=== PATIENT | male | born 1965 | race American Indian/Alaskan Native ===

== ENCOUNTER 2019-02-17 15:26 | Inpatient (IN) | payer BC, OTHER ==
[~2019-02-17] VITALS: Ht 182.9 cm; Wt 93.2 kg
[~2019-02-17 15:26] MED LIST: ASPI81TA52 PO; CLOP75TA35 PO; HYDR-4383 PO; LOVA20TA2 PO
[2019-02-17 16:50] LABS: ALANINE AMINOTRANSFERASE 31 U/L (12-78); ALBUMIN 4.4 G/DL (3.4-5.0); ALBUMIN/GLOBULIN RATIO 1.5 (1.1-1.5); ALKALINE PHOSPHATASE 56 IU/L (46-116); ANION GAP 11 (8-16); ASPARTATE AMINO TRANSFERASE 19 U/L (10-37); BILIRUBIN,TOTAL 0.5 MG/DL (0.1-1.0); BLOOD UREA NITROGEN 15 MG/DL (7-18); BUN/CREATININE RATIO 11.6 (5.4-32.0); CALCIUM 8.7 MG/DL (8.5-10.1); CHLORIDE 90 MMOL/L (99-107); CREATININE 1.29 MG/DL (0.60-1.10); GLUCOSE 116 MG/DL (70-104); POTASSIUM 4.5 MMOL/L (3.5-5.1); SODIUM 124 MMOL/L (135-145); TOTAL CARBON DIOXIDE 23.5 MMOL/L (24-32); TOTAL PROTEIN 7.3 G/DL (6.4-8.2); eGFR 58 ML/MIN
[2019-02-17] MEDS ORDERED: iohexol 350MG/ML 100ml bottle IV ONE (16:54)
[2019-02-17 17:43] LABS: BASOPHILS # (AUTO) 0.1 X10'3 (0-0.2); BASOPHILS % (AUTO) 0.5 % (0-1); EOSINOPHILS # (AUTO) 0.2 X10'3 (0-0.9); EOSINOPHILS % (AUTO) 2.2 % (0-6); HEMATOCRIT 41.5 % (42.0-52.0); HEMOGLOBIN 14.5 g/dl (14.0-17.9); LYMPHOCYTES # (AUTO) 1.9 X10'3 (1.1-4.8); LYMPHOCYTES % (AUTO) 18.6 % (21-51); MEAN CORPUSCULAR HEMOGLOBIN 35.3 PG (27.0-31.0); MEAN CORPUSCULAR HGB CONC 34.9 g/dL (33.0-36.5); MEAN CORPUSCULAR VOLUME 101.1 FL (78-98); MEAN PLATELET VOLUME 6.8 FL (7.4-10.4); MONOCYTES # (AUTO) 0.5 X10'3 (0-0.9); MONOCYTES % (AUTO) 5.1 % (2-12); NEUTROPHILS # (AUTO) 7.6 X10'3 (1.8-7.7); NEUTROPHILS % (AUTO) 73.6 % (42-75); PLATELET COUNT 286 X10'3 (140-440); RED BLOOD COUNT 4.11 X10'6 (4.70-6.10); RED CELL DISTRIBUTION WIDTH 14.3 % (11.5-14.5); WHITE BLOOD COUNT 10.4 X10'3 (4.5-11.0)
[2019-02-17 18:27] LABS: URINE AMPHETAMINE SCREEN NEGATIVE (Neg); URINE BARBITUATE SCREEN NEGATIVE (Neg); URINE BENZODIAZEPINES SCREEN NEGATIVE (Neg); URINE CANNABINOID SCREEN POSITIVE (Neg); URINE COCAINE SCREEN NEGATIVE (Neg); URINE METHADONE SCREEN NEGATIVE (Neg); URINE OPIATE SCREEN POSITIVE (Neg); URINE PHENCYCLIDINE SCREEN NEGATIVE (Neg)
[2019-02-17] MEDS ORDERED: HYDR-4353 PO (18:54)
[2019-02-17] MEDS ORDERED: TEST200V10 INJ (18:56)
--- NOTE | 2019-02-17 19:01 | NUR ---
pt states that he is taking [place] 10 for chronic back pain and that he will often take more than prescribed by his MD to control his pain. He states that he took a [place] just before his sycopal episode.
[2019-02-17] MEDS ORDERED: FLO0.4C PO (19:08)
[2019-02-17] MEDS ORDERED: normal saline 500ml IV soln 500 ML IV ONE (20:30)
[2019-02-17] MEDS ORDERED: acetaminophen 325mg tablet PO PRN (20:35)
[2019-02-17] MEDS ORDERED: HYDROcodone/acetaminophen 5mg/325mg tablet PO PRN (20:35)
[2019-02-17] MEDS ORDERED: ondansetron/PF 4mg/2ml inj IV PRN (20:35)
[2019-02-17] MEDS ORDERED: magnesium hydroxide 30ml (MOM) UD suspension PO PRN (20:35)
[2019-02-17] MEDS ORDERED: mag hydrox/Alum hydrox/simeth 30ml oral suspension PO PRN (20:35)
[2019-02-17] MEDS ORDERED: hydrocortisone sod succ/PF 100mg/2ml inj. IV ONE (20:40)
[2019-02-17] MEDS ORDERED: HYDROcodone/acetaminophen 10/325mg tab PO PRN (20:45)
[2019-02-17] MEDS: normal saline 1000ml 1,000 ML IV SCH (21:15)
[2019-02-17 22:20] VITALS: BP 138/76
[2019-02-17] MEDS: HYDROcodone/acetaminophen 10/325mg tab PO PRN (23:11)
[2019-02-18] MEDS: HYDROcodone/acetaminophen 10/325mg tab PO PRN ×5 (04:43→21:38)
[2019-02-18 06:00] VITALS: BP 115/72
--- NOTE | 2019-02-18 06:15 | NUR ---
Patient in room ORTHO 4009. I have received report from and had the opportunity to ask questions and assume patient care JEREMY Gallardo.
--- NOTE | 2019-02-18 06:27 | NUR ---
Problems reprioritized. Patient report given, questions answered & plan of care reviewed with JEREMY Miles.
[2019-02-18] MEDS: normal saline 1000ml 1,000 ML IV SCH ×2 (06:31→17:33)
[2019-02-18] MEDS: heparin, porcine 5000 units/ml vial SQ SCH ×2 (08:00→21:38)
[2019-02-18] MEDS: clopidogrel 75mg tablet PO SCH (08:00)
[2019-02-18 08:09] LABS: BASOPHILS % (AUTO) 0.3 % (0-1); EOSINOPHILS % (AUTO) 0 % (0-6); HEMATOCRIT 46.5 % (42.0-52.0); HEMOGLOBIN 16.3 g/dl (14.0-17.9); LYMPHOCYTES # (AUTO) 0.9 X10'3 (1.1-4.8); LYMPHOCYTES % (AUTO) 15.6 % (21-51); MEAN CORPUSCULAR HEMOGLOBIN 34.9 PG (27.0-31.0); MEAN CORPUSCULAR VOLUME 99.9 FL (78-98); MEAN PLATELET VOLUME 6.6 FL (7.4-10.4); MONOCYTES # (AUTO) 0.1 X10'3 (0-0.9); MONOCYTES % (AUTO) 2.4 % (2-12); NEUTROPHILS # (AUTO) 4.8 X10'3 (1.8-7.7); NEUTROPHILS % (AUTO) 81.7 % (42-75); PLATELET COUNT 344 X10'3 (140-440); RED BLOOD COUNT 4.65 X10'6 (4.70-6.10); RED CELL DISTRIBUTION WIDTH 14.5 % (11.5-14.5); WHITE BLOOD COUNT 5.8 X10'3 (4.5-11.0)
[2019-02-18 08:30] LABS: ALANINE AMINOTRANSFERASE 34 U/L (12-78); ALBUMIN 4.6 G/DL (3.4-5.0); ALBUMIN/GLOBULIN RATIO 1.3 (1.1-1.5); ALKALINE PHOSPHATASE 60 IU/L (46-116); ANION GAP 8 (8-16); ASPARTATE AMINO TRANSFERASE 19 U/L (10-37); BILIRUBIN,TOTAL 0.5 MG/DL (0.1-1.0); BLOOD UREA NITROGEN 9 MG/DL (7-18); BUN/CREATININE RATIO 10.8 (5.4-32.0); CALCIUM 8.8 MG/DL (8.5-10.1); CHLORIDE 98 MMOL/L (99-107); CREATININE 0.83 MG/DL (0.60-1.10); GLUCOSE 108 MG/DL (70-104); POTASSIUM 4.7 MMOL/L (3.5-5.1); SODIUM 133 MMOL/L (135-145); TOTAL CARBON DIOXIDE 27.1 MMOL/L (24-32); TOTAL PROTEIN 8.1 G/DL (6.4-8.2); eGFR > 90 ML/MIN
[2019-02-18 10:00] VITALS: BP 124/75
--- NOTE | 2019-02-18 15:44 | NUR ---
pt family brought patient breakfast and lunch for meals. Pt ate 100%
[2019-02-18 19:00] VITALS: BP 117/80
[2019-02-18 22:00] VITALS: BP 116/83
[2019-02-19] MEDS: HYDROcodone/acetaminophen 10/325mg tab PO PRN ×3 (02:07→11:15)
[2019-02-19] MEDS: normal saline 1000ml 1,000 ML IV SCH (02:12)
[2019-02-19 06:00] VITALS: BP 149/98
[2019-02-19 06:39] LABS: BASOPHILS # (AUTO) 0.1 X10'3 (0-0.2); EOSINOPHILS # (AUTO) 0.2 X10'3 (0-0.9); MEAN PLATELET VOLUME 7.7 FL (7.4-10.4)
[2019-02-19 06:43] LABS: BASOPHILS % (AUTO) 0.6 % (0-1); EOSINOPHILS % (AUTO) 2.1 % (0-6); HEMATOCRIT 42.2 % (42.0-52.0); HEMOGLOBIN 14.5 g/dl (14.0-17.9); LYMPHOCYTES # (AUTO) 2.9 X10'3 (1.1-4.8); LYMPHOCYTES % (AUTO) 35.4 % (21-51); MEAN CORPUSCULAR HEMOGLOBIN 34.6 PG (27.0-31.0); MEAN CORPUSCULAR HGB CONC 34.2 g/dL (33.0-36.5); MEAN CORPUSCULAR VOLUME 101.1 FL (78-98); MONOCYTES # (AUTO) 0.4 X10'3 (0-0.9); MONOCYTES % (AUTO) 5.1 % (2-12); NEUTROPHILS # (AUTO) 4.7 X10'3 (1.8-7.7); NEUTROPHILS % (AUTO) 56.8 % (42-75); PLATELET COUNT 282 X10'3 (140-440); RED BLOOD COUNT 4.18 X10'6 (4.70-6.10); RED CELL DISTRIBUTION WIDTH 14.4 % (11.5-14.5); WHITE BLOOD COUNT 8.3 X10'3 (4.5-11.0)
[2019-02-19 07:12] LABS: ALANINE AMINOTRANSFERASE 34 U/L (12-78); ALBUMIN 3.6 G/DL (3.4-5.0); ALBUMIN/GLOBULIN RATIO 1.2 (1.1-1.5); ALKALINE PHOSPHATASE 41 IU/L (46-116); ANION GAP 7 (8-16); BILIRUBIN,TOTAL 0.5 MG/DL (0.1-1.0); BLOOD UREA NITROGEN 10 MG/DL (7-18); BUN/CREATININE RATIO 12.7 (5.4-32.0); CALCIUM 8.2 MG/DL (8.5-10.1); CHLORIDE 103 MMOL/L (99-107); CREATININE 0.79 MG/DL (0.60-1.10); GLUCOSE 84 MG/DL (70-104); SODIUM 137 MMOL/L (135-145); TOTAL CARBON DIOXIDE 26.7 MMOL/L (24-32); TOTAL PROTEIN 6.5 G/DL (6.4-8.2); eGFR > 90 ML/MIN
[2019-02-19 07:14] LABS: ASPARTATE AMINO TRANSFERASE 25 U/L (10-37)
[2019-02-19] MEDS: heparin, porcine 5000 units/ml vial SQ SCH (08:00)
[2019-02-19] MEDS: clopidogrel 75mg tablet PO SCH (08:00)
[2019-02-19 10:00] VITALS: BP 142/93
[2019-02-19] MEDS ORDERED: gadopentetate dimeglumine 7.5 MMOL/15 ML syringe ONE (10:29)
--- NOTE | 2019-02-19 14:15 | NUR ---
DISCHARGE: VSS, A & O x4, denies SOB, resp distress, N/V vertigo at DC. All necessary procedures, tests complete, results consulted w/MD. Pt verbally confirmed understanding of all follow up appts r/t admission reasons/hx. all DC documents signed and copies released to pt. pt escorted to lobby/SHEN ambulating, w/[facility] staff member. pt thanked [facility] staff for his care.
== END 2019-02-19 14:10 | disposition home or self-care (01) | DRG 315 ==
LOC: ER 15:27 → ORTHO 4S 22:14
PROVIDERS: ADMIT Internal Medicine; ATTEND Family Medicine
PROC: B3251ZZ Computerized Tomography (CT Scan) of Bilateral Common Carotid Arteries using Low Osmolar Contrast (ICD-10-PCS; 2019-02-17)
PROC: B32G1ZZ Computerized Tomography (CT Scan) of Bilateral Vertebral Arteries using Low Osmolar Contrast (ICD-10-PCS; 2019-02-17)
PROC: B3201ZZ Computerized Tomography (CT Scan) of Thoracic Aorta using Low Osmolar Contrast (ICD-10-PCS; 2019-02-17)
PROC: B3281ZZ Computerized Tomography (CT Scan) of Bilateral Internal Carotid Arteries using Low Osmolar Contrast (ICD-10-PCS; 2019-02-17)
PROC: 4A10X4Z Monitoring of Central Nervous Electrical Activity, External Approach (ICD-10-PCS; principal; 2019-02-18)
DX: I95.9 Hypotension, unspecified (principal); E87.1 Hypo-osmolality and hyponatremia; R55 Syncope and collapse; M50.30 Other cervical disc degeneration, unspecified cervical region; F17.200 Nicotine dependence, unspecified, uncomplicated; G89.29 Other chronic pain; Z88.1 Allergy status to other antibiotic agents; Z83.3 Family history of diabetes mellitus; Z79.899 Other long term (current) drug therapy; Z71.6 Tobacco abuse counseling
CPT/HCPCS: 36415; 70496; 70498; 70553; 71045; 72141; 80053; 80305; 82024; 84484; 85025; 87081; 93005; 93308; 95816; 96361; 96374; 99285; A9579; G0378; J1644; J1720; J7030; J7040; Q9967

== ENCOUNTER 2019-03-25 12:12 | Inpatient (IN) | payer BC ==
[~2019-03-25] VITALS: Ht 182.9 cm; Wt 89.7 kg
[~2019-03-25 12:12] MED LIST changes: -ASPI81TA52 PO; -CLOP75TA35 PO; +FLO0.4C PO; +HYDR-4353 PO; -HYDR-4383 PO; -LOVA20TA2 PO; +TEST200V10 INJ
[2019-03-25] MEDS ORDERED: morphine 4 MG/ML inj SYRINge IV ONE (12:40)
[2019-03-25] MEDS ORDERED: ondansetron/PF 4mg/2ml inj IV ONE (12:40)
[2019-03-25] MEDS ORDERED: normal saline 1000ML IV soln IVB ONE ×2 (12:40→14:15)
[2019-03-25] MEDS ORDERED: pantoprazole 40 MG vial IV ONE (12:40)
[2019-03-25 13:10] LABS: BASOPHILS # (AUTO) 0.1 X10'3 (0-0.2); BASOPHILS % (AUTO) 0.9 % (0-1); EOSINOPHILS # (AUTO) 0.2 X10'3 (0-0.9); HEMATOCRIT 39.4 % (42.0-52.0); HEMOGLOBIN 14.1 g/dl (14.0-17.9); LYMPHOCYTES # (AUTO) 1.8 X10'3 (1.1-4.8); LYMPHOCYTES % (AUTO) 29.2 % (21-51); MEAN CORPUSCULAR HEMOGLOBIN 35.6 PG (27.0-31.0); MEAN CORPUSCULAR HGB CONC 35.8 g/dL (33.0-36.5); MEAN CORPUSCULAR VOLUME 99.4 FL (78-98); MONOCYTES # (AUTO) 0.5 X10'3 (0-0.9); MONOCYTES % (AUTO) 7.3 % (2-12); NEUTROPHILS # (AUTO) 3.7 X10'3 (1.8-7.7); NEUTROPHILS % (AUTO) 59.6 % (42-75); PLATELET COUNT 251 X10'3 (140-440); RED BLOOD COUNT 3.96 X10'6 (4.70-6.10); WHITE BLOOD COUNT 6.3 X10'3 (4.5-11.0)
[2019-03-25 14:02] LABS: ALANINE AMINOTRANSFERASE 28 U/L (12-78); ALBUMIN/GLOBULIN RATIO 1.3 (1.1-1.5); ALKALINE PHOSPHATASE 61 IU/L (46-116); ANION GAP 11 (8-16); ASPARTATE AMINO TRANSFERASE 21 U/L (10-37); BILIRUBIN,TOTAL 1.2 MG/DL (0.1-1.0); BLOOD UREA NITROGEN 10 MG/DL (7-18); BUN/CREATININE RATIO 13.9 (5.4-32.0); CALCIUM 7.9 MG/DL (8.5-10.1); CHLORIDE 85 MMOL/L (99-107); CREATININE 0.72 MG/DL (0.60-1.10); GLUCOSE 81 MG/DL (70-104); POTASSIUM 4.1 MMOL/L (3.5-5.1); TOTAL CARBON DIOXIDE 21.3 MMOL/L (24-32); eGFR > 90 ML/MIN
[2019-03-25 14:11] LABS: SODIUM 117 MMOL/L (135-145)
--- NOTE | 2019-03-25 14:11 | NUR ---
CALLED LAB FOR LAB RESULTS SO PT CAN GO TO CT, CREATININE 0.72, BUN 10 GFR>90, ALSO CRITICAL SODIUM 117 DR HERNANDEZ INFORMED.
[2019-03-25] MEDS ORDERED: mag hydrox/Alum hydrox/simeth 30ml oral suspension PO PRN (14:35)
[2019-03-25] MEDS ORDERED: ondansetron/PF 4mg/2ml inj IV PRN (14:35)
[2019-03-25] MEDS ORDERED: acetaminophen 325mg tablet PO PRN (14:35)
[2019-03-25] MEDS: normal saline 1000ml 1,000 ML IV SCH (15:59)
--- NOTE | 2019-03-25 16:11 | NUR ---
PT C/O PAIN 12/27 BACK PAIN, PAGED DR SHELLEY TO ADVISE. WILL AWAIT ANY ORDERS
[2019-03-25] MEDS: HYDROcodone/acetaminophen 10/325mg tab PO PRN ×2 (16:40→23:46)
--- NOTE | 2019-03-25 17:00 | NUR ---
Received report from Ronen LUNA. All questions answered; patient will be admitted to room 3012B.
[2019-03-25 17:09] LABS: CLARITY,URINE CLEAR (Clear); COLOR,URINE YELLOW (Yellow); GLUCOSE, URINE NEGATIVE (Neg); KETONES,URINE 40 mg/dl (Neg); LEUKOCYTE ESTERASE ,URINE NEGATIVE (Neg); NITRITES, URINE NEGATIVE (Neg); OCCULT BLOOD,URINE TRACE-INTACT (Neg); PH,URINE 6.5 (4.8-8.0); PROTEIN,URINE NEGATIVE (Neg); UA COLLECTION TYPE URINAL; UROBILINOGEN,URINE 0.2 E.U/dL (0.2-1.0)
[2019-03-25 17:17] LABS: BACTERIA,URINE FEW /HPF (Neg); SQUAMOUS EPITHELIAL CELL,UR FEW /LPF (FEW); WBC,URINE 0-4 /HPF (0-4)
[2019-03-25 19:47] LABS: ALBUMIN 3.5 G/DL (3.4-5.0); ANION GAP 7 (8-16); BLOOD UREA NITROGEN 8 MG/DL (7-18); BUN/CREATININE RATIO 11.6 (5.4-32.0); CHLORIDE 90 MMOL/L (99-107); CREATININE 0.69 MG/DL (0.60-1.10); GLUCOSE 105 MG/DL (70-104); POTASSIUM 4.2 MMOL/L (3.5-5.1); TOTAL CARBON DIOXIDE 22.7 MMOL/L (24-32); eGFR > 90 ML/MIN
[2019-03-25 19:52] LABS: SODIUM 120 MMOL/L (135-145)
[2019-03-25 20:00] VITALS: BP 160/87
--- NOTE | 2019-03-25 20:00 | NUR ---
Juana gave me report at 1940. Patient arrived to unit via gurchristoph and RN transporting. Two family members at her bedside. Addendum: 03/26/19 at 0518 by Eleazar Mays RN his bedside
[2019-03-25] MEDS: heparin, porcine 5000 units/ml vial SQ SCH (20:16)
[2019-03-25] MEDS: magnesium hydroxide 30ml (MOM) UD suspension PO PRN (20:16)
[2019-03-25 22:00] VITALS: BP 116/55
[2019-03-26 02:00] VITALS: BP 121/81
[2019-03-26] MEDS: normal saline 1000ml 1,000 ML IV SCH ×2 (02:31→11:08)
--- NOTE | 2019-03-26 05:43 | NUR ---
Dr Schaefer ordered pt to be on fluid restriction. NS running at 100mL/hr are ok. Addendum: 03/26/19 at 0544 by Eleazar Mays RN Amended: Links added.
[2019-03-26] MEDS: HYDROcodone/acetaminophen 10/325mg tab PO PRN ×3 (05:59→19:11)
[2019-03-26 06:00] VITALS: BP 117/61
[2019-03-26 06:23] LABS: ALBUMIN 3.8 G/DL (3.4-5.0); ANION GAP 8 (8-16); BLOOD UREA NITROGEN 7 MG/DL (7-18); BUN/CREATININE RATIO 10.3 (5.4-32.0); CALCIUM 8.3 MG/DL (8.5-10.1); CHLORIDE 96 MMOL/L (99-107); CREATININE 0.68 MG/DL (0.60-1.10); GLUCOSE 70 MG/DL (70-104); POTASSIUM 4.4 MMOL/L (3.5-5.1); SODIUM 128 MMOL/L (135-145); eGFR > 90 ML/MIN
[2019-03-26 06:28] LABS: BASOPHILS % (AUTO) 0.9 % (0-1); EOSINOPHILS # (AUTO) 0.1 X10'3 (0-0.9); EOSINOPHILS % (AUTO) 3.3 % (0-6); HEMATOCRIT 41.3 % (42.0-52.0); HEMOGLOBIN 14.6 g/dl (14.0-17.9); LYMPHOCYTES # (AUTO) 1.4 X10'3 (1.1-4.8); LYMPHOCYTES % (AUTO) 34.9 % (21-51); MEAN CORPUSCULAR HEMOGLOBIN 35.5 PG (27.0-31.0); MEAN CORPUSCULAR HGB CONC 35.3 g/dL (33.0-36.5); MEAN CORPUSCULAR VOLUME 100.6 FL (78-98); MEAN PLATELET VOLUME 7.2 FL (7.4-10.4); MONOCYTES # (AUTO) 0.3 X10'3 (0-0.9); MONOCYTES % (AUTO) 8.4 % (2-12); NEUTROPHILS # (AUTO) 2.1 X10'3 (1.8-7.7); NEUTROPHILS % (AUTO) 52.5 % (42-75); PLATELET COUNT 287 X10'3 (140-440); RED BLOOD COUNT 4.11 X10'6 (4.70-6.10); WHITE BLOOD COUNT 4.1 X10'3 (4.5-11.0)
--- NOTE | 2019-03-26 06:36 | NUR ---
Problems reprioritized. Patient report given, questions answered & plan of care reviewed with Eddie Yuen RN.
--- NOTE | 2019-03-26 06:41 | NUR ---
Patient in room PCU 3012B. I have received report from Eleazar LUNA and had the opportunity to ask questions and assume patient care.
[2019-03-26] MEDS: heparin, porcine 5000 units/ml vial SQ SCH ×2 (08:13→19:10)
[2019-03-26] MEDS ORDERED: LISI-600 PO (08:24)
--- NOTE | 2019-03-26 10:01 | NUR ---
Pt is requesting referral for hand i thermal cutter. Per Dr Jeffers, we are unable to make referral and patient MUST go through his PCP.
[2019-03-26 11:00] VITALS: BP 119/65
--- NOTE | 2019-03-26 14:27 | NUR ---
Paged Dr Jeffers regarding patients most recent Na result PAGER ID: [phone] MESSAGE: Alap evangelista [phone]. Maame Campo lab results came back with Na of 127.
[2019-03-26 15:00] VITALS: BP 123/71
[2019-03-26 18:00] VITALS: BP 119/71
--- NOTE | 2019-03-26 18:30 | NUR ---
Patient in room PCU 3028. I have received report from JEREMY AVENDAÑO and had the opportunity to ask questions and assume patient care.
--- NOTE | 2019-03-26 18:42 | NUR ---
Problems reprioritized. Patient report given, questions answered & plan of care reviewed with Rosy LUNA. Patient stable at change of shift
[2019-03-26 22:00] VITALS: BP 140/71
[2019-03-27] MEDS: HYDROcodone/acetaminophen 10/325mg tab PO PRN ×2 (01:13→08:09)
[2019-03-27] MEDS: normal saline 1000ml 1,000 ML IV SCH (01:26)
[2019-03-27 03:00] VITALS: BP 120/80
[2019-03-27 04:55] LABS: BASOPHILS % (AUTO) 0.9 % (0-1); EOSINOPHILS # (AUTO) 0.2 X10'3 (0-0.9); EOSINOPHILS % (AUTO) 3.7 % (0-6); LYMPHOCYTES # (AUTO) 1.8 X10'3 (1.1-4.8); LYMPHOCYTES % (AUTO) 36.9 % (21-51); MEAN CORPUSCULAR HEMOGLOBIN 35.7 PG (27.0-31.0); MEAN CORPUSCULAR HGB CONC 35.7 g/dL (33.0-36.5); MEAN PLATELET VOLUME 7.5 FL (7.4-10.4); MONOCYTES # (AUTO) 0.4 X10'3 (0-0.9); MONOCYTES % (AUTO) 7.7 % (2-12); NEUTROPHILS # (AUTO) 2.5 X10'3 (1.8-7.7); NEUTROPHILS % (AUTO) 50.8 % (42-75); PLATELET COUNT 275 X10'3 (140-440); RED CELL DISTRIBUTION WIDTH 14.2 % (11.5-14.5); WHITE BLOOD COUNT 4.9 X10'3 (4.5-11.0)
[2019-03-27 05:04] LABS: ANION GAP 9 (8-16); BLOOD UREA NITROGEN 11 MG/DL (7-18); BUN/CREATININE RATIO 14.1 (5.4-32.0); CALCIUM 8.5 MG/DL (8.5-10.1); CHLORIDE 99 MMOL/L (99-107); CREATININE 0.78 MG/DL (0.60-1.10); GLUCOSE 86 MG/DL (70-104); POTASSIUM 4.4 MMOL/L (3.5-5.1); SODIUM 133 MMOL/L (135-145); TOTAL CARBON DIOXIDE 24.9 MMOL/L (24-32); eGFR > 90 ML/MIN
--- NOTE | 2019-03-27 06:23 | NUR ---
Problems reprioritized. Patient report given, questions answered & plan of care reviewed with JEREMY AVENDAÑO.
--- NOTE | 2019-03-27 06:54 | NUR ---
Patient in room PCU 3028B. I have received report from Rosy LUNA and had the opportunity to ask questions and assume patient care.
[2019-03-27] MEDS: magnesium hydroxide 30ml (MOM) UD suspension PO PRN (08:09)
[2019-03-27] MEDS: heparin, porcine 5000 units/ml vial SQ SCH (08:10)
--- NOTE | 2019-03-27 11:00 | NUR ---
Per MD order patient stable for discharge. No new medications to call to pharmacy. Tele monitor and IV removed with cannula intact. Patient given discharge packet, and discharged with all belongings. Patient discharged to home with .
--- NOTE | 2019-03-27 11:08 | NUR ---
[employer] Hire documentation: I have reviewed and agree with all interventions, assessments performed and documented by Vania LUNA.
== END 2019-03-27 11:14 | disposition home or self-care (01) | DRG 392 ==
LOC: ER 12:13 → ED HOLD 14:38 → PCU 3S 19:54
PROVIDERS: ADMIT Family Medicine; ATTEND Family Medicine
DX: K59.00 Constipation, unspecified (principal); E87.1 Hypo-osmolality and hyponatremia; N40.0 Benign prostatic hyperplasia without lower urinary tract symptoms; I10 Essential (primary) hypertension; G89.29 Other chronic pain; M54.9 Dorsalgia, unspecified; F17.210 Nicotine dependence, cigarettes, uncomplicated; Z83.3 Family history of diabetes mellitus; Z79.899 Other long term (current) drug therapy
CPT/HCPCS: 36415; 74018; 80048; 80053; 81001; 83690; 84295; 85025; 87081; 94760; 96361; 96374; 96375; 99285; C9113; G0378; J1644; J2270; J2405; J7030

== ENCOUNTER 2025-02-20 05:27 | Inpatient (IN) | payer OTHER ==
[2025-02-12 12:01] LABS: MEAN PLATELET VOLUME 8.0 FL (7.4-10.4); PRE OP HEMATOCRIT 45.7 % (42.0-52.0); PRE OP HEMOGLOBIN 15.6 g/dL (14.0-17.9); PRE OP PLATELET COUNT 314 X10'3 (140-440); PRE OP WHITE BLOOD COUNT 10.0 10'3 (4.8-10.8); RED CELL DISTRIBUTION WIDTH 13.7 % (11.5-14.5)
--- NOTE | 2025-02-12 12:06 | ELECTROCARDIOGRAPH REPORT ---
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 RANDALL De Anda Measurements Intervals [place] Rate: 66 P: 71 AK: 164 QRS: 42 QRSD: 111 T: 1 QT: 374 QTc: 392 Interpretive Statements Sinus rhythm Incomplete left bundle branch block Electronically Signed On 02-12-2025 17:19:[address] RANDALL De Anda Please click the below link to view image of tracing.
[2025-02-12 12:30] LABS: CREATININE 0.85 MG/DL (0.60-1.10); PRE OP ALT 30 U/L (30-65); PRE OP ANION GAP 6 (8-16); PRE OP AST 17 U/L (10-37); PRE OP BILIRUB, TOTAL 0.3 MG/DL (0.0-1.0); PRE OP GLUCOSE 92 MG/DL (70-104); PRE OP POTASSIUM 4.3 MMOL/L (3.4-5.1); PRE OP SODIUM 137 MMOL/L (135-145); TOTAL CARBON DIOXIDE 29.0 MMOL/L (24-32); eGFR > 90 ML/MIN
[~2025-02-20] VITALS: Ht 182.9 cm; Wt 106.7 kg
[2025-02-20] VITALS (22 sets, daily range): BP systolic 110–153; BP diastolic 60–102; PULSE 63–83; RESP 9–22; TEMP 98.2–98.5; O2SAT 89–100
[~2025-02-20 05:27] MED LIST changes: +CHOL200026 PO; -FLO0.4C PO; +HYDR-4318 PO; +HYDR20TA24 PO; +LEVO100T78 PO; +LISI5TAB22 PO; -TEST200V10 INJ
[2025-02-20] MEDS: hydrocortisone sod succ/PF 100mg/2ml inj. IV ONE (06:18)
[2025-02-20] MEDS: tranexamic acid 1gm/0.7% sal. 100 ML IV ONE ×2 (06:18→15:49)
[2025-02-20] MEDS: ceFAZolin 2gm/dext,iso 50mL 50 ML IV ONE (06:18)
[2025-02-20] MEDS: ringers solution, lacted 1,000 ML IV SCH ×2 (06:18→08:40)
[2025-02-20] MEDS: VANCOMYCIN/H2O 1.5g/300mL PB 300 ML IV ONE (06:19)
[2025-02-20] MEDS ORDERED: vancomycin 1,000mg inj ONE (06:50)
[2025-02-20] MEDS ORDERED: MIDAZolam 1mg/ml 10ml vial ONE (07:21)
[2025-02-20] MEDS ORDERED: fentaNYL/PF 50MCG/1 ML 2ML syringe ONE (07:21)
[2025-02-20] MEDS ORDERED: propofol inj 20 ML IV ONE ×2 (07:24)
[2025-02-20] MEDS ORDERED: fentaNYL/PF 50MCG/1 ML 2ML syringe IV PRN ×2 (08:40)
[2025-02-20] MEDS ORDERED: ondansetron/PF 4mg/2ml inj IV PRN ×2 (08:40→11:45)
[2025-02-20] MEDS ORDERED: hydrALAZINE 20mg/ml inj. IV PRN (08:40)
[2025-02-20] MEDS ORDERED: labetalol 20mg/4ml (5mg/ml) syringe IV PRN (08:40)
[2025-02-20] MEDS ORDERED: morphine 4 MG/ML inj SYRINge IV PRN (08:40)
--- NOTE | 2025-02-20 08:54 | ANESTHESIA RECORDS ---
Nerve Block Providers to CC CC: ZULEYKA STEELE MD ~ Diagnosis: Nerve Block requested by: ZULEYKA STEELE MD Neuraxial/Peripheral Nerve Block requested for Post-operative analgesia by Physician above DIAGNOSIS: Post-operative pain. (Body Area) Shoulder: [ ] Arm: [ ] Hand: [ ] Hip: [ ] Knee: [ Right ] Ankle: [ ] Foot: [ ] Leg: [ ] Abdomen: [ ] Other: [ ] Post-operative pain expected to be/is inadequately managed by oral or IV medicines. Regional anesthetic expected to facilitate rehabilitation and/or discharge from facility. Other:[ _] Procedure Performed: Femoral / Saphenous: Right Other: Right Ipack block Time out Done?: Yes Time of Time out: 08:38 Procedure Details: PROCEDURE DETAILS: Risks, benefits and alternatives explained Informed consent obtained, and patient wishes to proceed Conscious sedation with indicated monitors Patient positioned, pertinent anatomy defined, sterile technique used Needle used: [ ] 3 1/8 inch Stimuplex Ultra 22ga [ ] 4 inch Stimuplex Ultra 20ga [X ] 6 inch Stimuplex Ultra 20ga [ ] 6 inch, Quikbloc over the needle catheter set 20ga [ ] 4 inch Quikbloc over the needle catheter set 20ga [ ]Other: [ ] Loss of twitch @ [ ]mA [X ] Single Injection [ ] Catheter Ultrasound Guidance Used: [X ] Yes [ ] No Attempts:[_1,1 ] Medicines injected: [ ]Clonidine Amt:[ ] [ ]Dexamethasone Amt:[ ] [ ]Ropivacaine Amt:[ ] [ X ]Bupivacaine Amt:[___0.25% 30 c.c ] [ ]Lidocaine Amt:[ ] [ X ]Exparel 1.33%:[____20 c.c ] [ ]Epinephrine Amt[ ] [ ]Other: [ ] Intermittent aspiration during local anesthetic administration No symptoms of intraneural or intravenous injection Patient tolerated procedure well Comments Right Adductor canal Block: Right mid medial thigh is examined with Ultrasound and Adductor canal and vessels in the canal a are identified. Needle is in the canal.After negative aspirations,30 c.c locla mix of Exparel,bupevacaine injected. Spread is noted. Ultrasound image is captured and documented. Right Ipack block: Right posterior thigh is examined at right medial femoral condyle level. Right popliteral artery, right posterior knee capsule are idnetified. Needle is placed in between and 20 c.c local mix is infiltrated. Image is captured and documented. MATTHEW ALFARO MD Feb 20, 2025 08:54
[2025-02-20] MEDS ORDERED: ketorolac trometh 30MG/ML vial 30 MG/ML VIAL ONE (09:03)
[2025-02-20] MEDS ORDERED: HYDROmorphone inj. 0.5 MG/0.5 ML DISP.SYRIN IV PRN (11:45)
[2025-02-20] MEDS ORDERED: bisacodyl 10mg suppository rectal RC PRN (11:45)
[2025-02-20] MEDS ORDERED: oxyCODONE IR 5mg (immed. release) tablet PO PRN (11:45)
[2025-02-20] MEDS ORDERED: magnesium hydroxide 30ml (MOM) UD suspension PO PRN (11:45)
[2025-02-20] MEDS ORDERED: PCA WASTE DOCUMENTATION 1 MG ML MC SCH (11:45)
--- NOTE | 2025-02-20 12:05 | OPERATIVE REPORT ---
Operative Report Providers to ~ Date of Procedure: Feb 20, 2025 Pre-Operative Diagnosis: Severe degenerative joint disease tricompartmental right Post-Operative Diagnosis SAME as PRE-Op Procedure Performed Right total knee arthroplasty Press-Fit Surgeon: Zuleyka Brooke MD Stock Saw Operator Kedar Blankenship MD Anesthesiologist: Bronson Siddiqui Type of Anesthesia: Spinal Findings: Severe tricompartmental degenerative joint disease Complications None Prosthetics\Implants used: To pew 41 mm patella cemented. Number size seven tibial base plate Press-Fit. Size seven femoral cruciate retaining cementless right distal femoral component. Size seven /6 mm thick medial congruent polyethylene insert Estimated Blood Loss: One hundred fifty mL Specimen Removed: Degenerative bone meniscal and cruciate tissue Description of Procedure: Patient was taken to the operating room after I had obtained informed consent signed his right knee. Answered all of his questions discussing the indications risks benefits limitations and potential complications. Patient was taken to operating room after obtaining informed consents were signed. Intravenous antibiotics were given and administered per protocol. Once in the operating room patient was given a spinal anesthetic and placed in the OR table in the supine position. His left leg was placed sequential compression sleeve. The right leg was placed in a upper thigh well-padded tourniquet. Surgical time-out was taken after the leg was prepped and draped in usual sterile orthopaedic fashion. The skin had been protected with Ioban skin dressings. Esmarch was used for exsanguination and tourniquet was insufflated anterior incision measuring 10 in was made medial parapatellar approach was accomplished allowing exposure of the patella was found and revealed a surrounding osteophytes and moderate synovitis. Osteotomy of the patella now was performed using a freehand technique this allowed excision of the osteophytes and was measured to a size 41 and was drilled and protected with a skin plate subluxed laterally. Distal femoral was exposed. Meniscectomies were performed in an inferior fat pad/Hoffa's fat pad was excised hemostasis was achieved with electrocautery throughout the case. Medullary canal was established in the distal femur for a HIDA purposes alignment jerson was inserted distal femoral cut of 10 mm was accomplished using the alignment jerson. Proximal tibia was exposed with the knee placed in the extreme flexion releasing cruciate ligaments and excising admitted meniscal tissue medullary canal was established with a drill and the intramedullary jreson for guidance and alignment purposes was placed proximal femur was cut with 3 mm of cut of the medial side and 10 mm side and a 5 degree posterior slope. Flexion-extension gaps were found to be equal. Four in one cutting block was then placed in the distal femur and anterior and posterior chamfer cuts were made without difficulty. Bone quality was excellent. Trial components were placed in the knee and we are able to achieved with a 6 mm insert full extension and full flexion with stable throughout this range of motion. Tibia was killed in the definitive Press-Fit component was impacted into place with a excellent fixation. Femoral component was now impacted into place as well in the definitive polyethylene insert was placed in the knee. He was taken through a range of motion again found to be quite stable she had full range of motion. Pa tella was cemented into place allowed to cure for 15 minutes. Tourniquet was released and hemostasis was checked and found to be excellent with supported with thrombin spray/Vistaseal 1 g of vancomycin powder was placed in the depths of the knee as well. Closure was accomplished with interrupted sutures of 1. Ethibond and Stratafix 1. Prolene barbed suture. Subcuticular closure was accomplished with 2-0 barbed suture using horizontal mattress technique. The skin was sealed with Dermabond sterile saline closure with the knee flexed position allowing this to harden for 90 seconds for placing sterile dressings and an island dressing over the top. The dressings were removed allowing the anesthesiologist to perform a I pack block and a adductor canal block patient was then transferred to the recovery room in stable condition leg was checked for good distal pulses and capillary refill . There were no apparent perioperative complications Counts repoted as correct: Yes ZULEYKA BROOKE MD Feb 20, 2025 12:05
--- NOTE | 2025-02-20 12:57 | RADIOLOGY REPORT ---
EXAM: DI KNEE LIMITED (AP/LAT) CLINICAL INDICATION: Postop RT. KNEE TECHNIQUE: DI KNEE LIMITED (AP/LAT) Comparison: None FINDINGS/IMPRESSION: Right total knee arthroplasty. Expected postsurgical changes
[2025-02-20] MEDS: potassium cl 20mEq in 1/2 NS 1,000 ML IV SCH (13:47)
[2025-02-20] MEDS: HYDROcodone/acetaminophen 10/325mg tab PO PRN (15:50)
[2025-02-20] MEDS: ceFAZolin/D5W- 1GM premix 50 ML IV SCH (16:45)
[2025-02-20] MEDS: vancomycin/NS 1 GM ADD-VANTAGE 250 ML IV SCH (20:15)
--- NOTE | 2025-02-20 20:27 | CONSULTATION REPORT - RESIDENT ---
Consult Providers to CC Resident Creating Document: FAUSTO DIEGO RES History of Present Illness Reason for Admit\Complaint: PAIN MANAGEMENT History of Present Illness 60 year old male patient with past medical history of sleep apnea , HTN, and hypothyroidism has come to the hospital for right total knee arthroplasty which was performed today by Dr Brooke. Patient is currently complaning of pain in his right leg, rates it 7/10 in intensity. Patient was on a foleys catheter which was removed, he is able to pass urine without any difficulty. He has no other complaints of chest pain, headache, abdominal pain, fever, nausea , vomiting, sob. Allergies: Coded Allergies: No Known Allergies (Unverified , 02/19/25) Home Medications Home Medications Active Reported Levoxyl (Levothyroxine Sodium) 100 Mcg Tablet 1 Tab PO DAILY 30 Days Lisinopril 5 Mg Tablet 1 Tab PO DAILY 30 Days Vitamin D3 (Cholecalciferol (Vitamin D3)) 50 Mcg (2000 Unit) Tablet 1 Tab PO DAILY 30 Days Hydrocortisone 10 Mg Tablet 10 Mg PO QPM Hydrocortisone 20 Mg Tablet 20 Mg PO QAM 30 Days [place] 10-325 Tablet (Acetaminophen/Hydrocodone Bitart) 1 Each Tablet 1 Tab PO BID PRN Past Medical History Past Medical History sleep apnea hypertension hypothyroidism Past Surgical History Surgical History Comment No significant surgical history. Family History Family History: (DM Type 2) Diabetes mellitus type 2 GRANDFATHER OR GRANDMOTHER, Onset:Unknown Past Social History Social History Comment Patient has smoked for about 20 years, 5 cigarettes per day. hasn't had alcohol for 20 yrs now, before that annabel a socail drinker. no illicit drug use He lives at home with his . He is independent with all his activities of daily living. ROS ROS Constitutional: No fever, chills present, no dizziness Eyes: No pain, erythema, discharge, blurring of vision ENT: No sore throat, epistaxis, tinnitus Cardiovascular:No chest pain, palpitations, syncope, lower extremity edema, paroxysmal nocturnal dyspnea Respiratory: No hemoptysis. No shortness of breadth Gastrointestinal: no nausea , vomiting. Present no,hematemesis, melena Musculoskeletal:complaints of pain in his right leg.No chronmic edema. Integumentary: No change in skin, hair, No swelling, no abrasions Neurologic: No weakness,No headache, neck pain, Psychiatric: No delusions, depression, loss of interest in normal activity or change in sleep pattern, hallucinations, suicidal ideations Endocrine: no polydipsia, polyuria, change in appetite, heat or cold intolerance, sweating, dry skin Hematological: no bleeding, petechiae, bruising Allergies: No asthma or urticaria Gastrointestinal: Reports: no abdominal pain, rectal bleeding Exam Vitals: Vital Signs Date Time Temp Pulse Resp B/P (MAP) Pulse Ox O2 Delivery O2 Flow Rate FiO2 02/20/25 17:00 78 133/94 (107) 96 02/20/25 16:00 22 Nasal Cannula* 3 32 02/20/25 13:15 98.3 General: Awake , alert and oriented to time,place, person, not in acute distress, seemed a bit irritated. HEENT: Atraumatic, normocephalic, PEERLA, anicteric sclera ; pink conjunctiva, dry mucosa membrane Neck: Trachea midline. Supple, normal range of motion, no JVD Cardiac: S1, S2 heard, Regular rate and rhythm, without murmurs, rubs, or gallops. Chest and Respiratory: Equal breath sounds bilaterally, no tachypnea, & no rhonchi , Chest wall is symmetric and without deformity. Abdomen: Abdomen symmetric, no abdominal tenderness no guarding or rebound tenderness, no hepatosplenomegaly Extremities: warm, No cyanosis, clubbing or edema, peripheral pulses well felt Neurological: Speech is clear, alert, and oriented x 4. No motor or sensory deficit, deep tendon reflexes normal, cerebellar intact. Cranial nerves II-XII intact. Skin: Warm and dry Psychiatry: Affect and slightly irritated Additional Plan Zgsnwryna-68-hnnl-old male with past medical history of hypertens ion,hypothyroidism ,sleep apnea , was admitted in the hospital for right total knee arthroplasty by Dr. Brooke which was performed today. Hospital team was consulted for pain management. Right total knee arthroplasty Right total knee arthroplasty done by Dr Brooke today Patient receiving fluids Ringer's lactate 20mls/hr Patient on Vancomycin 1gm q12h IV and cefazolin 1gm q8h IV. Patient able to pass gas. Patient on a knee sleeve right now Patient currentyl receiving dilaudid, acetaminophen and narco for his pain. Will continue to monitor him. Hypertension- Systolic blood pressures in 130's, 140's now. Patient on home medication lisinopril 5mg. Hypothyroidism- Patient on levothyroxine 100mcg. Follow up with outpatient Sleep apnea- CPAP ordered. Disposition- will continue to monitor the patient for pain control. Fausto Diego PGY-1 Date of Service: Feb 20, 2025 Billing Provider: CARIN RIOS MD, PREETHI, RES Feb 20, 2025 20:27
[2025-02-21] MEDS: oxyCODONE IR 5mg (immed. release) tablet PO PRN (00:37)
[2025-02-21 03:41] LABS: LEUKOCYTE ESTERASE ,URINE NEGATIVE (Neg); NITRITES, URINE NEGATIVE (Neg); OCCULT BLOOD,URINE SMALL (Neg)
[2025-02-21 03:42] LABS: UA COLLECTION TYPE CLN CATCH MIDSTREAM
[2025-02-21 03:52] LABS: SQUAMOUS EPITHELIAL CELL,UR NONE SEEN /LPF (FEW)
[2025-02-21 06:00] VITALS: BP 125/64; PULSE 83; RESP 14; TEMP 98.3; O2SAT 98
[2025-02-21] MEDS: cholecalciferol (vitamin D3) 1,000 unit (25mcg) tablet PO SCH (08:24)
[2025-02-21] MEDS: levoTHYROXINE 100mcg tablet PO SCH (08:25)
[2025-02-21] MEDS: enoxaparin 40mg/0.4ml syringe SQ SCH (08:31)
[2025-02-21 09:32] LABS: MEAN PLATELET VOLUME 8.5 FL (7.4-10.4); RED CELL DISTRIBUTION WIDTH 14.2 % (11.5-14.5)
[2025-02-21 09:50] LABS: CREATININE 1.03 MG/DL (0.60-1.10); TOTAL CARBON DIOXIDE 28.4 MMOL/L (24-32); eCRCL 85 ML/MIN; eGFR 74 ML/MIN
[2025-02-21 10:00] VITALS: BP 138/91; PULSE 85; RESP 16; TEMP 98.3; O2SAT 100
[2025-02-21] MEDS ORDERED: APIX2.5T PO (10:04)
--- NOTE | 2025-02-21 12:26 | DISCHARGE SUMMARY ---
Discharge Summary Providers to CC ~ Discharge Summary Admission Diagnosis: Right TKA Hospital Course DATE OF ADMISSION: 02/20/25 DATE OF DISCHARGE: 02/21/25 Discharge Diagnosis\\Comment: Right total knee arthroplasty Hypertension Hypothyroidism Sleep apnea Operations\\Procedures: Right total knee arthroplasty Press-Fit Consultants: None Complications: None Condition on DC: Stable New Medications: Apixaban (Eliquis) 2.5 Mg Tablet 1 TAB PO Q12H for 14 Days, #28 TAB 0 Refills Changed Medications: Lisinopril (Lisinopril) 5 Mg Tablet 2 TAB PO DAILY for 30 Days, #60 TAB 0 Refills (Changed from: 1 TAB; 30) Continued Medications: Cholecalciferol (Vitamin D3) (Vitamin D3) 50 Mcg (2000 Unit) Tablet 1 TAB PO DAILY for 30 Days, #30 TAB 0 Refills Hydrocodone Bit/Acetaminophen ([place] 10-325 Tablet) 1 Each Tablet 1 TAB PO BID PRN for pain Hydrocortisone (Hydrocortisone) 20 Mg Tablet 20 MG PO QAM for 30 Days, #30 TAB 0 Refills Hydrocortisone (Hydrocortisone) 10 Mg Tablet 10 MG PO QPM, TAB Levothyroxine Sodium (Levoxyl) 100 Mcg Tablet 1 TAB PO DAILY for 30 Days, #30 TAB 0 Refills Discharge Summary: History of Present Illness From H&P: "60 year old male patient with past medical history of sleep apnea , HTN, and hypothyroidism has come to the hospital for right total knee arthroplasty which was performed today by Dr. Brooke. Patient is currently complaining of pain in his right leg, rates it 7/10 in intensity. Patient had Foleys catheter which was removed, he is able to pass urine without any difficulty. He has no other complaints of chest pain, headache, abdominal pain, fever, nausea , vomiting, sob." Hospital Course Patient was continued on supportive care. Patient did not experience further complications throughout the entire hospital stay and remained clinically and hemodynamically stable. Patient was seen and examined on the day of discharge. On day of discharge, vss and labs unremarkable. All labs, diagnostic workups, di scharge plan discussed with patient in details during visit before discharge. All questions and concerns answered to the best of my professional knowledge. Patient is to be discharged with and to follow-up with PCP and Dr. Brooke within 2 weeks. 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
[2025-02-21] MEDS ORDERED: LISI5TAB22 PO (12:43)
== END 2025-02-21 12:55 | disposition home health service (06) | DRG 470 ==
LOC: PAS IN 05:27 → ORTHO 4S 13:26
PROVIDERS: ADMIT Orthopaedic Surgery; ATTEND Nurse Practitioner Family
PROC: 0JH80VZ Insertion of Infusion Pump into Abdomen Subcutaneous Tissue and Fascia, Open Approach (ICD-10-PCS; 2025-02-20)
PROC: 3E013BZ Introduction of Anesthetic Agent into Subcutaneous Tissue, Percutaneous Approach (ICD-10-PCS; 2025-02-20)
PROC: 0SRC0J9 Replacement of Right Knee Joint with Synthetic Substitute, Cemented, Open Approach (ICD-10-PCS; principal; 2025-02-20 07:39)
DX: M17.11 Unilateral primary osteoarthritis, right knee (principal); E03.9 Hypothyroidism, unspecified; I10 Essential (primary) hypertension; M65.961 Unspecified synovitis and tenosynovitis, right lower leg
CPT/HCPCS: Z7506; Z7508; 36415; 73560; 80053; 81001; 82948; 84443; 85025; 87081; 93005; 94760; 97110; 97116; 97162; A4215; A4615; A6253; A6258; A6446; A6449; A6454; A7000; C1713; C1776; C9250; G0378; J0690; J1171; J1650; J1720; J1885; J2250; J2704; J3010; J3373; J3375; J3480; J3490; J7120

== ENCOUNTER 2025-02-21 22:36 | Emergency (ER) | payer OTHER ==
[~2025-02-21 22:36] MED LIST changes: +APIX2.5T PO
[2025-02-22] MEDS: HYDROcodone/acetaminophen 10/325mg tab PO ONE (01:59)
[2025-02-22] MEDS ORDERED: morphine 4 MG/ML inj SYRINge IV PRN (02:30)
[2025-02-22] MEDS ORDERED: normal saline 1000ML IV soln IVB ONE (02:30)
[2025-02-22] MEDS ORDERED: ondansetron/PF 4mg/2ml inj IV ONE (02:30)
--- NOTE | 2025-02-22 03:12 | Physician Documentation ---
History of Present Illness ~ Chief Complaint: Post-operative complication Stated Complaint: RIGHT LEG BLEEDING Time Seen by MD: 02:23 Primary Medical Doctor: Oj Palomino Source: patient Mode of Arrival: POV, Dropped Off Exam Limitations: no limitations HPI Chief Complaint: Bleeding from surgical incision Caveat: None Independent Historians: None History of Present Illness: Patient is a 60-year-old man postop day 1. Status post total right knee replacement by Dr. Steele on February 20. Patient was discharged on February 21. Patient comes in on February 21 complaining of his gauze being saturated with dark blood. Patient denies any dizziness. No chest pain, no shortness a breath. Patient denies any other associated symptoms other than his postoperative pain that has expected. Review of systems: All systems were reviewed and are negative except for what is indicated in the history of present illness. Past Medical History: HTN Past Surgical History: Total right knee February 20, 2025 Social History: , no tobacco use, no alcohol use, no drug use Medications: Reviewed as documented Nursing Notes Allergies: Reviewed as documented in Nursing Notes Tetanus witin 5 years: No Medication Reconciliation Allergies: Coded Allergies: No Known Allergies (Unverified , 02/21/25) Scheduled Apixaban (Eliquis), 1 TAB PO Q12H Cholecalciferol (Vitamin D3) (Vitamin D3), 1 TAB PO DAILY, (Reported) Hydrocortisone (Hydrocortisone), 20 MG PO QAM, (Reported) Hydrocortisone (Hydrocortisone), 10 MG PO QPM, (Reported) Levothyroxine Sodium (Levoxyl), 1 TAB PO DAILY, (Reported) Lisinopril (Lisinopril), 2 TAB PO DAILY Scheduled PRN Hydrocodone Bit/Acetaminophen (Woodlyn 10-325 Tablet), 1 TAB PO BID PRN for pain, (Reported) Discontinued Medications [Levoxyl], 10 MG PO DAILY, (Reported) Discontinued Reason: Prescription changed Past Medical History Past Medical History: *MUSCULOSKELETAL*, Chronic Pain, Chronic Back Pain Past Surgical History: brain surgery Patient History: (DM Type 2) Diabetes mellitus type 2 GRANDFATHER OR GRANDMOTHER, Onset:Unknown Alcohol Use: Occasionally Drug Use: none Lives with: Spouse Lives In: Home Review of Systems All Other Systems at this time: Reviewed and Negative ROS Patient denies any other acute symptoms other than above. All other systems are negative Physical Exam Vital Signs: RN Vital Signs have been reviewed: Yes, Temperature: 98.0, Source: Oral, Heart Rate: 75, Respiratory Rate: 14, BP: 146/88, Pulse Oximetry: 96 Pulse Oximetry Reflects: adequate oxygenation Physical Exam General Appearance: No distress HEENT: Normal OP, moist oral mucosa, PERRL, EOMI Neck: supple, normal ROM, trachea midline Pulmonary: No respiratory distress, CTA, BS equal Cardiac: RRR, no murmur, rub or gallop, Extremities: Surgical incision over the right knee and leg is saturated with dark blood. Dressing is removed. There was no significant active bleed but some continued oozing. Clean nonadhesive dressing is applied. The end of the incision over the right leg is slightly open but isn't having any significant bleeding. Skin: intact, dry, warm, no rashes Neuro: AAOx3, speech is clear, no focal motor weakness Psych: normal affect, good eye contact, no apparent hallucination, normal speech Progress Results/Orders Results/Orders Completed Orders - CARLI GAMEZ MD Hydrocodone/Apap 10/325 (Woodlyn 10/325mg (02/22/25 01:55) Medications Received in ER Medications (Trade) Dose Ordered Sig/Dion Route PRN Reason Start Time Stop Time Status Last Admin Dose Admin (Woodlyn 10/325mg tab) 1 tab ONCE ONCE PO 02/22/25 01:55 02/22/25 02:34 DC 02/22/25 01:59 1 TAB Vital Signs 02/21/25 02/22/25 02/22/25 23:07 00:42 00:49 Temp 96.8 98.0 Pulse 82 75 Resp 15 12 14 B/P (MAP) 142/65 146/88 (107) Pulse Ox 98 96 Medical Decision Making Findings Differential diagnosis includes but is not limited to: Postoperative bleeding Emergency department course/medical decision-making: Patient has some venous oozing of blood from the surgical wound. Dressing is changed and a pressure dressing is applied. Patient does not require surgical consultation. Patient may follow up with Dr. Steele. Patient is stable for discharge. Departure Time of Disposition: 03:13 Disposition: 01 HOME / SELF CARE / HOMELESS Impression: Primary Impression: Postoperative bleeding from incision Discharge Instructions: Total Knee Replacement, Care After, [id number] Additional Instructions: FOLLOW UP WITH DR. STEELE SCHEDULED Education Educated: Patient Educated regarding: diagnosis, treatment, need for follow up Signature Scribe Signature: No scribe Attestation: No scribe CARLI GAMEZ MD Feb 22, 2025 03:12
[2025-02-22 03:19] VITALS: BP 187/110; PULSE 115; TEMP 98; O2SAT 96
[2025-02-22 03:43] VITALS: RESP 16
[2025-02-22] MEDS: oxyCODONE IR 5mg (immed. release) tablet PO ONE (03:43)
== END 2025-02-22 04:03 | disposition home or self-care (01) ==
LOC: ER 22:37
DX: M96.830 Postprocedural hemorrhage of a musculoskeletal structure following a musculoskeletal system procedure (principal); I10 Essential (primary) hypertension; G89.29 Other chronic pain; E11.9 Type 2 diabetes mellitus without complications; Z79.899 Other long term (current) drug therapy; Z72.89 Other problems related to lifestyle; Z96.651 Presence of right artificial knee joint
CPT/HCPCS: 99283; A6223; A6253; A6258; A6449